=== PATIENT | female | born 1950 | race Caucasian/White ===

== ENCOUNTER 2023-02-02 08:31 | Emergency (ER) | payer OTHER, MEDICARE, SELFPAY ==
--- NOTE | ~2023-02-02 | XR_ITS ---
Right Shoulder Technique: AP and scapular Y views were obtained. Clinical History: Injury Findings: No fracture or dislocation is seen. Osseous alignment is anatomic. There is mild to moderat e degenerative changes AC joint. There is minimal glenohumeral joint degenerative change. There is pr obable focal calcific tendinitis of the supraspinatus tendon distally.. Soft tissues are unremarkable . Impression: Degenerative changes, as above. Probable focal calcific tendinitis of the distal supraspinatus tendon. Reviewed, dictated and finalized at location M. Impression: Degenerative changes, as above. Probable focal calcific tendinitis of the distal supraspinatus tendon.
--- NOTE | ~2023-02-02 | CT_ITS ---
Noncontrast CT scan of the cervical spine Technique: Multiple contiguous axial [address] images of the cervical spine were obtained and rec onstructed in 2D sagittal and coronal planes on the acquisition scanner. Dose reduction technique was used on this scan by utilizing automated exposure control, adjustment of the mA and/or kV according to patient size. The dose-length product (DLP) was 252.05 mGy-cm. Clinical History: Pain Findings: No fractures or dislocations. There is mild reversal of the normal cervical lordosis. Ther e is moderate degenerative disc narrowing at C5-C6. No prevertebral soft tissue swelling. Impression: No fracture or subluxation of the cervical spine. Reviewed, dictated and finalized at location . Impression: No fracture or subluxation of the cervical spine.
--- NOTE | ~2023-02-02 | CT_ITS ---
CT head without contrast Indication: Head pain Technique: Serial scans were obtained through the brain without the administration of contrast. Dose reduction technique was used on this scan by utilizing automated exposure control and iterative recon struction technique. The dose-length product (DLP) was 605.33 mGy-cm. Findings: There is no evidence of intracranial hemorrhage, mass lesion, or acute infarct. The ventri cles and subarachnoid spaces are unremarkable. Low attenuation regions are seen within the periventr icular white matter bilaterally, likely representing changes from chronic microvascular ischemic dise ase. There is no evidence of edema, mass effect or midline shift. The visualized paranasal sinuses and mastoid air cells are clear. Impression: No intracranial hemorrhage, mass, or acute infarct. Mild chronic white matter changes, as above. Reviewed, dictated and finalized at location . Impression: No intracranial hemorrhage, mass, or acute infarct. Mild chronic white matter changes, as above.
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
[2023-02-02 08:41] VITALS: BP 156/80; PULSE 83; RESP 16; TEMP 36.2; O2SAT 98
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
[2023-02-02 09:54] LABS: Appearance Urine Clear (Clear); Bilirubin Urine Negative (Negative); Blood Urine Negative (Negative); Color Urine Yellow (Yellow); Glucose Urine UA Negative (Negative); Ketones Urine Negative (Negative); Leukocyte Esterase Ur Negative LEU/UL (Negative); Nitrate Urine Negative (Negative); Protein Urine Negative (Negative); Urobilinogen Urine 0.2 mg/dL (<2.0); pH Urine 6.5 (5.0-9.0)
[2023-02-02 09:55] LABS: Add Urine Microscopic? NO
[2023-02-02 10:10] VITALS: BP 150/78; PULSE 88; RESP 16; O2SAT 98
== END 2023-02-02 10:10 | disposition home or self-care (01) ==
PROVIDERS: Emergency Provider Nurse Practitioner Family
DX: S16.1XXA Strain of muscle, fascia and tendon at neck level, initial encounter (principal); S39.012A Strain of muscle, fascia and tendon of lower back, initial encounter; Z79.84 Long term (current) use of oral hypoglycemic drugs; M47.816 Spondylosis without myelopathy or radiculopathy, lumbar region; V49.40XA Driver injured in collision with unspecified motor vehicles in traffic accident, initial encounter
CPT/HCPCS: 70450; 72100; 72125; 73030; 81003; 99284